=== PATIENT | male | born 1950 | race Caucasian/White ===

== ENCOUNTER 2017-12-30 15:45 | Emergency (ER) | payer MEDICARE, OTHER, SELFPAY ==
[2017-12-30 15:46] VITALS: BP 110/64; PULSE 64; RESP 16; TEMP 36.7; O2SAT 98; BMI 26.6
[2017-12-30] MEDS: 0.9% Normal Saline 1,000 ML 1000 ML IV (16:06)
--- NOTE | 2017-12-30 16:06 | EKG12_ITS ---
Test Reason : SYNCOPE Blood Pressure : / mmHG Vent. Rate : 069 BPM Atrial Rate : 069 BPM P-R Int : 160 ms QRS Dur : 104 ms QT Int : 400 ms P-R-T Axes : 057 026 046 degrees QTc Int : 428 ms Normal sinus rhythm Normal ECG Confirmed by ARELIS HICKEY, NAVJOT ([id number]), art editor RANDI ZIEGLER ([id number]) on 01/02/2018 10:51:22 AM Referred By: OTONIEL Confirmed By:NAVJOT INFANTE MD
--- NOTE | 2017-12-30 16:10 | RAD_ITS ---
STUDY: X-RAY CHEST REASON FOR EXAM: Male, 67 years old. Syncope TECHNIQUE: Single view of the chest was obtained COMPARISON: None. FINDINGS: No lung consolidation, pleural effusion or pneumothorax. Cardiac size is within normal limits. Calcified granuloma in the left perihilar region. Degenerative changes of the thoracic spine. IMPRESSION: No evidence of focal airspace disease Electronically Signed: Jasen Barahona, at 16:54 EDT Tel , Service support , RAD/Chest 1 View (Portable)
--- NOTE | 2017-12-30 16:34 | ED.VISSUMM ---
- ER Visit Summary Date of Service: 12/30/17 Chief Complaint: [Syncope] History of Present Illness: The patient is a 67 M [presents the emergency department after sustaining a syncopal episode prior to arrival in the emergency department. Patient states that he had finished playing a 18-hole round of golf when he went down to the restaurant and ordered a beer and some food. While seated he began feeling sweaty, dizzy, mildly nauseated, and had a syncopal episode lasting about 2 minutes per . Patient was drooling from the mouth slightly at the time. There is no seizure-like activity noted. Patient came to after about 2 minutes or so and did not appear confused. Patient states that he did drink fluids while out on the golf course. He denies any chest pain or shortness of breath. Currently just feels slightly weak. Patient states he had a similar episode about a year ago but did not completely pass out.] Physical Examination: [HEENT-PERRLA, EOMI. Cranial nerves II through XII grossly intact. TMs clear. Mucous membranes moist. No adenopathy. Cardiovascular-regular rate and rhythm without murmur or ectopy Lungs-clear to auscultation, chest wall stable without crepitus or subcu emphysema Abdomen-normoactive bowel sounds, soft, nontender, no rebound or rigidity, no peritoneal signs. Extremities-intact ?4, normal range of motion, normal pulses, atraumatic] Test Results: [EKG obtained on arrival showed a sinus rhythm with a ventricular rate of 69 bpm with no acute ST segment changes.] BC with a ventricular white count of 8.4, hemoglobin 13.9, hematocrit 42, platelets 269. Chemistries unremarkable. BUN was 41 creatinine 1.62. Troponin was less than 0.015. Chest x-ray was normal. Emergency Department Course and Treatment: [Patient was given a liter normal same fluid bolus] Treatment Plan: [Admit for further workup and evaluation of syncope of unknown etiology] Disposition: [Admit] Impression: [Syncope-etiology uncertain] This note was generated with [employer] software. It may contain incorrect words, spelling, and punctuation that were not noted in review of the chart prior to signing ED Disposition - Plan for ED Patient: Chief Complaint: Syncope Referrals: Finesse Huff MD [Primary Care Provider] -
[2017-12-30 17:04] LABS: Anion Gap 6 (5-15); BUN 41 mg/dL (7-18); BUN/Creat Ratio 25.3 RATIO (10-20); Calcium,Total 9.7 mg/dL (8.5-10.1); Chloride 109 mmol/L (98-107); Creatinine, Serum 1.62 mg/dL (0.70-1.30); EST Glomerular Filtration Rate 45 mL/min (>60); Est Glom Filt Rate - Afr Amer 55 mL/min (>60); Estimated Creatinine Clearance 50.01 ml/min; Glucose 114 mg/dL (74-106); Potassium 4.8 mmol/L (3.5-5.1); Sodium Level 141 mmol/L (136-145)
[2017-12-30 17:50] LABS: Absolute Lymphocyte Count 1.36 X10^3/ul (0.83-4.51); Absolute Neutrophil Count 9.3 X10^3/uL (2.0-7.7); Basophil# 0.03 X10^3/uL; Basophil% 0.3 % (0-1); Eosinophil# 0.04 X10^3/uL; Eosinophils% 0.4 % (0-5); Hemoglobin 13.9 g/dl (13.0-16.5); Lymphocyte # 1.36 X10^3/ul (4.0); Mean Corp Hgb Conc 33.1 g/gl (32-36); Mean Corpuscular Hgb 30.3 pg (27.0-32.0); Mean Corpuscular Volume 91.7 fL (80-94); Mean Platelet Vol. 9.1 fl (6.2-12.0); Monocyte# 0.65 X10^3/uL; Monocyte% 5.7 % (0-10); Neutrophil # 9.27 X10^3/uL (2.7-7.7); Neutrophil % 81.6 % (47-70); Platelet Count 269 K/mm3 (150-450); RBC Distribution Width CV 13.4 % (11.6-14.6); RBC Distribution Width SD 44.2 fl (35.1-43.9); Red Blood Count 4.58 M/mm3 (4.6-6.2); White Blood Count 11.4 K/mm3 (4.4-11.0)
[2017-12-30 17:52] LABS: POSITIVE COUNT NO; POSITIVE DIFFERENTIAL NO; POSITIVE MORPHOLOGY NO
[2017-12-30 18:23] VITALS: BP 133/76; PULSE 83; RESP 17; O2SAT 99
--- NOTE | 2017-12-30 18:25 | ED.DCSUM_ITS ---
- ER Visit Summary Date of Service: 12/30/17 Chief Complaint: [Addendum to initial dictation] History of Present Illness: The patient is a 67 M [] Physical Examination: [] Test Results: [] Emergency Department Course and Treatment: [] Treatment Plan: [Patient was seen by hospitalist in the department and the patient is now stating that he does not want to be admitted. Patient will sign out AGAINST MEDICAL ADVICE. Patient understands I do not have a clear etiology for his syncopal episode and concern about possible cardiac dysrhythmia that could lead to sudden cardiac potentially. Patient understands risk of and disability.] Disposition: [Discharged home AGAINST MEDICAL ADVICE] Impression: [Syncope-etiology uncertain Patient left AGAINST MEDICAL ADVICE] This note was generated with [employer] dictation software. It may contain incorrect words, spelling, and punctuation that were not noted in review of the chart prior to signing ED Disposition - Plan for ED Patient: Chief Complaint: Syncope Referrals: Finesse Huff MD [Primary Care Provider] -
--- NOTE | 2017-12-30 18:25 | ED.DEP ---
ED Disposition - Plan for ED Patient: Chief Complaint: Syncope Instructions: ED Fainting Unkn Cause Referrals: Finesse Huff MD [Primary Care Provider] - As soon as possible
[2017-12-30 18:40] VITALS: BP 114/88; PULSE 83; RESP 20
== END 2017-12-30 18:42 | disposition left against medical advice (07) ==
PROVIDERS: Emergency Provider Emergency Medicine; PCP Family Medicine
DX: R55 Syncope and collapse (principal); N28.9 Disorder of kidney and ureter, unspecified; I10 Essential (primary) hypertension; Z79.82 Long term (current) use of aspirin; Z53.21 Procedure and treatment not carried out due to patient leaving prior to being seen by health care provider
CPT/HCPCS: 36415; 71045; 80048; 84484; 85025; 93005; 96360; 96361; 99285; J7030; A4216

== ENCOUNTER → 2018-01-08 13:17 | Outpatient (CLI) | payer MEDICARE, OTHER, SELFPAY ==
[2018-01-08 14:01] LABS: Hematocrit 41.8 % (40-54); Hemoglobin 13.6 g/dl (13.0-16.5); Mean Corp Hgb Conc 32.5 g/gl (32-36); Mean Corpuscular Volume 92.1 fL (80-94); Platelet Count 256 K/mm3 (150-450); RBC Distribution Width CV 13.2 % (11.6-14.6); RBC Distribution Width SD 44.4 fl (35.1-43.9); Red Blood Count 4.54 M/mm3 (4.6-6.2); White Blood Count 5.3 K/mm3 (4.4-11.0)
[2018-01-08 14:02] LABS: Scan Indicated on CBC? Y/N NO
[2018-01-08 14:24] LABS: Anion Gap 6 (5-15); BUN 26 mg/dL (7-18); BUN/Creat Ratio 20.3 RATIO (10-20); Calcium,Total 9.4 mg/dL (8.5-10.1); Chloride 103 mmol/L (98-107); Creatinine, Serum 1.28 mg/dL (0.70-1.30); EST Glomerular Filtration Rate 59 mL/min (>60); Est Glom Filt Rate - Afr Amer 72 mL/min (>60); Glucose 88 mg/dL (74-106); Potassium 4.6 mmol/L (3.5-5.1); Sodium Level 137 mmol/L (136-145)
== END ==
PROVIDERS: Family Provider Family Medicine; PCP Family Medicine; Visit Provider Surgery
DX: Z01.818 Encounter for other preprocedural examination (principal); E78.5 Hyperlipidemia, unspecified
CPT/HCPCS: 36415; 80048; 85027

== ENCOUNTER → 2018-01-10 15:49 | Outpatient (CLI) | payer MEDICARE, OTHER, SELFPAY | PROVIDERS: Family Provider Family Medicine; PCP Family Medicine; Visit Provider Surgery | DX: I65.23 Occlusion and stenosis of bilateral carotid arteries (principal) | CPT/HCPCS: 70498; Q9967 ==

== ENCOUNTER → 2018-01-16 09:20 | Outpatient (CLI) | payer MEDICARE, OTHER, SELFPAY ==
[2018-01-16 10:13] LABS: Anion Gap 6 (5-15); BUN 20 mg/dL (7-18); BUN/Creat Ratio 15.5 RATIO (10-20); Chloride 106 mmol/L (98-107); Creatinine, Serum 1.29 mg/dL (0.70-1.30); EST Glomerular Filtration Rate 59 mL/min (>60); Est Glom Filt Rate - Afr Amer 71 mL/min (>60); Glucose 97 mg/dL (74-106); Potassium 4.1 mmol/L (3.5-5.1); Sodium Level 141 mmol/L (136-145)
== END ==
PROVIDERS: Family Provider Family Medicine; PCP Family Medicine; Visit Provider Family Medicine
DX: N28.9 Disorder of kidney and ureter, unspecified (principal)
CPT/HCPCS: 36415; 80048

== ENCOUNTER 2018-02-06 05:53 | Inpatient (IN) | payer MEDICARE, OTHER, SELFPAY ==
[2018-02-06] VITALS (21 sets, daily range): BP systolic 112–158; BP diastolic 48–97; PULSE 64–87; RESP 16–18; TEMP 36.2–36.9; O2SAT 94–100; BMI 25.3; BMI 26.3
--- NOTE | 2018-02-06 | PLAQ_PTH ---
PATIENT: JENNIFFER RAMSEY LOC: [facility] U#:[id number] AGE/SX: 67/M ROOM: [facility]211 RE02/06/[address]: Dr. Skyler Brizuela MD : 1950 BED: 1 DIS: 02/07/2018 SPEC #: [id number] RECD: 02/06/18 13:13 STATUS: DANO REQ #: [id number] SOFYA: 02/06/18 00:[address]: Skyler Brizuela DEPT: SURGICAL PATHOLOGY RECD BY: Jesus Alberto Lazcano ENTERED: 02/06/18 13:13 SP TYPE: PLAQUE OTHR DR: Dr. Finesse Huff MD Tissues: PLAQUE Procedures: Decalcification bone/plaque Surgery Specimen Level III HEADER OPERATION: Carotid endarterectomy PRE-OP DIAGNOSIS: Stenosis of right internal carotid artery TISSUE SUBMITTED: Plaque MICROSCOPIC DIAGNOSIS Plaque, carotid endarterectomy: Arteriosclerotic tissue with focal calcification (plaque). SJ:hina 02/08/18 GROSS DESCRIPTION Received in fixative is one container labeled with the patient's name and designated plaque. The specimen consists of a previously opened, indurated piece of acevedo-yellow tissue measuring 2 cm in length and 0.7 cm in diameter. The specimen cuts with gritty sensation. The lumen appears almost completely obliterated. The entire specimen is submitted in one cassette after decalcification. / HANSEL:hina 02/06/18 TC:5 CPT: 13048, 05280
[2018-02-06 06:31] LABS: Mean Corp Hgb Conc 34.1 g/gl (32-36); Mean Corpuscular Hgb 31.3 pg (27.0-32.0); Mean Corpuscular Volume 91.5 fL (80-94); Mean Platelet Vol. 8.7 fl (6.2-12.0); Platelet Count 287 K/mm3 (150-450); RBC Distribution Width CV 13.5 % (11.6-14.6); RBC Distribution Width SD 44.7 fl (35.1-43.9); Red Blood Count 4.48 M/mm3 (4.6-6.2); White Blood Count 5.1 K/mm3 (4.4-11.0)
[2018-02-06 06:32] LABS: Scan Indicated on CBC? Y/N NO
[2018-02-06 06:42] LABS: Anion Gap 9 (5-15); BUN 29 mg/dL (7-18); BUN/Creat Ratio 24.4 RATIO (10-20); Calcium,Total 9.5 mg/dL (8.5-10.1); Chloride 104 mmol/L (98-107); Creatinine, Serum 1.19 mg/dL (0.70-1.30); EST Glomerular Filtration Rate 65 mL/min (>60); Est Glom Filt Rate - Afr Amer 78 mL/min (>60); Estimated Creatinine Clearance 68.08 ml/min; Glucose 89 mg/dL (74-106); Potassium 4.5 mmol/L (3.5-5.1); Sodium Level 139 mmol/L (136-145)
--- NOTE | 2018-02-06 08:19 | PCM.OPRPT ---
Problem List (1) Carotid stenosis, right Status: Acute Report of Operation Date of Procedure: 02/06/18 Pre-Operative Diagnosis: Symptomatic critical stenosis of the right internal carotid Post-Operative Diagnosis: Same Surgery/Procedure Performed:: Right radial arterial line placement. Right carotid endarterectomy with bovine patch angioplasty Description of Surgical Findings:: Timeout and informed consent was obtained. At the bedside Abel test was performed demonstrating adequate right ulnar flow. The right wrist was gently extended and prepped with Betadine. Under ultrasound guidance 1% lidocaine was used as a local anesthetic. A total of 1 cc was used. A 20-gauge Angiocath was advanced under ultrasound guidance into the right radial artery. Seldinger wire advancement was utilized. Then this was exchanged out for a 20-gauge aero kit Angiocath. That was secured to the skin with interrupted 3-0 silk. It was connected to pressure tubing and a OpSite dressing and and Daylin dressing applied. He tolerated the procedure well without apparent complication. Good waveform was obtained. He was subsequently taken to the operating room for planned definitive right carotid surgery Second the operating room. He was placed upon the table. He underwent general endotracheal intubation anesthesia. Ancef 2 g given intravenously preoperatively. He was relatively hypotensive and anesthesia required about 20 minutes to stabilize. Then the right neck was sterilely prepped and draped. An oblique incision was made along the anterior border the sternocleidomastoid sharp dissection carried down through the substance tissue. The platysma was incised. The sternocleidomastoid was reflected laterally as sharp dissection carried directly directly down upon the carotid bulb. It was rather low in the neck. Omohyoid had to be partially transected. Hemostasis was obtained throughout with multiple hemoclips and 3-0 Vicryl ligatures. The carotid bulb was identified circumferential control was obtained and then dissection performed cephalad on the internal carotid artery were transmural involvement with cholesterol plaque was noted. A rather low-lying hypoglossal nerve was identified and carefully protected. Crossing facial vein branches had been secured with hemoclips and 3-0 Vicryl ligatures were indicated. Circumferential control was seen in the common carotid and a Oh tie of Dacron tape placed. Circumferential control was obtained of the internal carotid and the Dacron tape and Eliazar tourniquet was applied. The superior thyroid secured with a Oh tie of 3-0 Vicryl. The external carotid was secured with a single loop of vessel loop. I felt that I had adequate exposure. The patient received 9000 units of heparin weight-based. Later in the procedure at 40 minutes and the procedure he received another 1000 units of heparin IV. Peripheral vascular clamps are placed on the common carotid internal carotid external carotid. 11 blade was used to make an arteriotomy. Initially I slipped a #10 USCI style shunt cephalad but then in attempting to place the shunt proximally the shunt withdrew from that cephalad perch. The retrograde flow from the internal carotid was easily controlled. I then went to reinsert the shunt just did not like the way it felt. I therefore based upon cerebral oximetry and excellent backflow felt that I would proceed without a shunt. The intima was sharply transected proximally and the plaque was elevated from the carotid bulb proceeded cephalad unfortunately the intima of the internal carotid was extraordinarily thin and very fragile. I could not get a smooth nice tapering to the degree that I wanted. I was able to get a feathering. I performed inversion enterectomy of the external carotid. I then readdress the internal carotid carefully removing several extra layers so as to not leave any additional abnormal edges. I did however then used several interrupted 7-0 Prolene tacking sutures to assure that the intima was well secured. I then trimmed a 0.8 x 8 cm bovine patch. I performed a patch angioplasty with a running 6-0 Prolene again taking great care to assure that all of the intima was well secured cephalad at the internal carotid. The patch angioplasty was done in a running fashion. Prior to completion the vessel was irrigated and there was excellent backflow from the internal carotid good backflow from the external carotid and excellent antegrade flow. The patch angioplasty was completed flow was initiated from the external carotid common carotid find the internal carotid. A couple repair sutures of 7-0 Prolene to assure hemostasis. I then used a Doppler probe directly upon the vessel and inspected with duplex demonstrating what appeared to be wide patency and normal flow. [employer] Vanessa was present during this for the procedure to help run the machinery. I felt that I had good flow. I obtained further hemostasis in the wound bed with hemoclips and interrupted 6-0 Prolene sutures. Having hemostasis intact and then closed with his with a running 3-0 Vicryl and the skin edges with a running septic or 5-0 Vicryl. We then placed a larger print probe and in a sterile bag as well and Kath performed a limited right carotid duplex imaging exam as far cephalad as she could view. The internal carotid did dive rather deeply. However the patch angioplasty appeared to be very good there was no evidence of any dissection flow was good in antegrade and the vessel appeared to be widely patent and open. This point felt that an appropriate procedure had been achieved. The valery-incisional areas anesthetized with 10 cc of 0.5% Marcaine. Steri-Strips Telfa and tape dressings were applied. Sponge and instrument and needle counts were reported the surgeon to be correct. Blood loss was 200 cc. He was taken to the recovery area in sagittal condition without apparent complication. Specimens plaque. Drains none. Blood loss 200 cc. He was allowed to awaken on the table. He is neurologically responded normally to all 4 extremities voice was clear tongue was midline. Skyler Brizuela M.D., F.A.C.S. Type of Anesthesia:: General Anesthesiologist: Dipak Mcclain
--- NOTE | 2018-02-06 08:26 | DCINST_ITS ---
Discharge Diet: Light diet - advance as tolerated - if you have questions about your diet instructions, please talk to you doctor. Discharge Activity: May Not Drive - for 1 week or while taking narcotic pain medicine. May shower in (days): 3 - You may shower on Sunday Lifting Restrictions: 10 pounds Call your doctor if your incision/area has: Continuous Slow Oozing, Sudden Increased Bleeding, Increased Pain/ Swelling, Increased Redness, Foul Smelling Discharge Call your doctor if you observe: Fever of 101 or Higher Suture Line Care: Avoid Pulling/Pushing, Avoid Pinching/Bending Additional Dressing/Incision Instructions:: Please leave the Steri-Strips in place for 1 week. You may utilize gauze and tape to further protect the incision from rubbing on any clothing as needed. Allergies/Adverse Reactions: Allergies No Known Allergies Allergy (Verified 01/30/18 08:08) Medications to take at Discharge Aspirin 325 mg PO DAILY@0800 01/30/18 Hydrocodone Bitart/Apap 5-325 [Patrick 5MG-325MG] 1 tablet PO Q6H PRN PRN 2 Days # 8 tablet 02/06/18 The following prescriptions were given: Hydrocodone Bitart/Apap 5-325 [Patrick 5MG-325MG] 1 tablet PO Q6H PRN PRN 2 Days # 8 tablet PRN Reason: Pain Primary Care Physician: Finesse Huff MD [Primary Care Provider] - Test Results: Test results from this visit will be discussed in further detail at your follow- up appointment, if applicable. Please Follow Up With: Skyler Brizuela MD - [phone] When: Call to make an appointment to be seen in about 10 days.
[2018-02-06] MEDS: Cefazolin 2 GM in 0.9% Normal Saline 100 ML IV (08:47)
[2018-02-06] MEDS: Bupivacaine Mpf 0.5% 30 ML VIAL (11:13)
[2018-02-06] MEDS: Heparin Injection (Vial) 5,000 UNIT/ML VIAL 5000 UNIT (11:14)
[2018-02-06] MEDS: Lactated Ringers 1,000 ML 15 ML IV (16:45)
[2018-02-06] MEDS: Acetaminophen 325 MG Tablet PO ×2 (16:45→22:56)
[2018-02-06] MEDS: Cefazolin 1 GM/50 ML BAG IV (16:46)
--- NOTE | 2018-02-06 18:28 | PCM.CAROT ---
General Carotid Note - Subjective Post-Op Day #: 0 - Objective Vital Signs Temp Pulse Resp BP Pulse Ox 97.8 F 72 16 115/63 99 02/06/18 16:50 02/06/18 16:50 02/06/18 16:50 02/06/18 16:50 02/06/18 16:50 Laboratory Tests Past 24 Hrs 02/06/18 02/06/18 06:20 06:20 WBC 5.1 RBC 4.48 L Hgb 14.0 Hct 41.0 MCV 91.5 MCH 31.3 MCHC 34.1 RDW 13.5 RDW Differential 44.7 H Plt Count 287 MPV 8.7 Sodium 139 Potassium 4.5 Chloride 104 Carbon Dioxide 26.0 Anion Gap 9 BUN 29 H Creatinine 1.19 Estim Creat Clear Calc 68.08 Est GFR (MDRD) Af Amer 78 Est GFR (MDRD) Non-Af 65 BUN/Creatinine Ratio 24.4 H Glucose 89 Calcium 9.5 Neck: Supple Neurological: Cranial nerves II-XII grossly intact - Pt has voided and is quite comfortable. No complaints
[2018-02-07] MEDS: Cefazolin 1 GM/50 ML BAG IV (01:20)
[2018-02-07 02:18] VITALS: BP 135/66; PULSE 82; RESP 16; TEMP 36.4; O2SAT 98
[2018-02-07] MEDS: Acetaminophen 325 MG Tablet PO (05:04)
--- NOTE | 2018-02-07 06:11 | PCM.CAROT ---
General Carotid Note - Subjective Post-Op Day #: 1 - Objective Vital Signs Temp Pulse Resp BP Pulse Ox 97.6 F L 82 16 135/66 H 98 02/07/18 02:18 02/07/18 02:18 02/07/18 02:18 02/07/18 02:18 02/07/18 02:18 Laboratory Tests Past 24 Hrs 02/06/18 02/06/18 06:20 06:20 WBC 5.1 RBC 4.48 L Hgb 14.0 Hct 41.0 MCV 91.5 MCH 31.3 MCHC 34.1 RDW 13.5 RDW Differential 44.7 H Plt Count 287 MPV 8.7 Sodium 139 Potassium 4.5 Chloride 104 Carbon Dioxide 26.0 Anion Gap 9 BUN 29 H Creatinine 1.19 Estim Creat Clear Calc 68.08 Est GFR (MDRD) Af Amer 78 Est GFR (MDRD) Non-Af 65 BUN/Creatinine Ratio 24.4 H Glucose 89 Calcium 9.5 Neck: Supple Neurological: Cranial nerves II-XII grossly intact - Excellent progress. Neuro intact. Wound clean. Plan discharge
[2018-02-07 08:15] VITALS: BP 143/72; PULSE 69; RESP 16; TEMP 36.4; O2SAT 100
== END 2018-02-07 09:50 | disposition home or self-care (01) | DRG 39 ==
PROVIDERS: Admitting Provider Surgery; Family Provider Family Medicine; PCP Family Medicine; Visit Provider Surgery
PROC: 03CK0ZZ Extirpation of Matter from Right Internal Carotid Artery, Open Approach (ICD-10-PCS; CPT 35301; principal; 2018-02-06 08:10)
DX: I65.21 Occlusion and stenosis of right carotid artery (principal); F17.200 Nicotine dependence, unspecified, uncomplicated
CPT/HCPCS: 36415; 80048; 85027; 88304; 88311; J7040; J7120; J2405

== ENCOUNTER 2018-07-04 05:29 | Day surgery (SDC) | payer MEDICARE, OTHER, SELFPAY ==
[2018-07-04] VITALS (8 sets, daily range): BP systolic 75–132; BP diastolic 51–113; PULSE 70–95; RESP 16–18; TEMP 35.9–36.5; O2SAT 92–100
--- NOTE | 2018-07-04 06:30 | PCM.HP.STD ---
Problem List (1) Personal history of colonic polyps Status: Acute History of Present Illness Date of Admission: 07/04/18 The patient is a 68 year old M who has a personal history of colon polyps. He has a sister who had colorectal cancer. His previous colonoscopies 3 years ago. He denies bright red blood per rectum or melena. I have assisted him in the recent past with a left carotid endarterectomy. He remains asymptomatic. He otherwise enjoys good health Past Medical History Past Medical History (Chronic Problems): Chronic Problems (Last Reviewed 02/15/18 @ 13:53 by Sue Choudhary) Hypertension (Chronic) Medical History: Medical History (Last Reviewed 02/15/18 @ 13:53 by Sue Choudhary) Carotid stenosis, right (Acute) I65.21 Hyperlipemia (Acute) E78.5 Hypertension (Chronic) I10 Diverticular disease of colon (Acute) K57.30 Benign neoplasm of colon (Acute) D12.6 Allergies No Known Allergies Allergy (Verified 07/01/18 08:47) Home Medications: Ambulatory Orders Medication Instructions Recorded Atorvastatin Calcium [Lipitor] 10 mg PO QHS 07/01/18 Lisinopril [Zestril] 10 mg PO DAILY 07/01/18 Multivitamin [Multiple Vitamins] 1 each PO DAILY 07/01/18 Aspirin [Aspirin, Baby] 81 mg PO DAILY@0800 07/04/18 Surgical History: Surgical History (Last Updated 02/15/18 @ 13:53 by Sue Choudhary) Hx of basal cell carcinoma excision (Acute) Z98.890, Z85.828 nose 2016 History of esophagogastroduodenoscopy (EGD) (Acute) Z98.890 08/07/2005 Hx of colonoscopy (Acute) Z98.890 07/01/07, 07/25/2010, 06/2001, 07/2002,06/2004, 2009,06/25/2015 Hx of appendectomy (Acute) Z90.49 History of right-sided carotid endarterectomy Onset Date: ~02/06/18 Z98.890 Smoking Status: Former smoker Tobacco Use: Non-smoker Review of Systems Constitutional: Denies: Anorexia Eyes: Denies: Blurred vision HEENT: Denies: Difficulty Hearing Cardiovascular: Denies: Chest Pain Respiratory: Denies: Cough Gastrointestinal: Denies: Abdominal Pain Neurological: Denies: Balance problems Endocrine: Denies: Change in Body Habitus VTE Information - Inpt Only VTE Present on Admission: No Patient Problems: Active and Suspected Problems (Last Reviewed 02/15/18 @ 13:53 by Sue Choudhary) Personal history of colonic polyps (Acute) - Physical Exam General: Alert, Oriented x3, Cooperative, No apparent distress HEENT: Atraumatic Oral: Moist Mucosa Neck: Supple, No JVD Lungs: Clear to auscultation Cardiovascular: Regular rate, Regular Rhythm Abdomen: Bowel Sounds Present, Soft, Non Tender Extremities: No Calf Tenderness Psych/Mental Status: Normal Affect Vital Signs Temp Pulse Resp BP Pulse Ox 97.7 F L 95 16 111/59 L 97 07/04/18 05:53 07/04/18 05:53 07/04/18 05:53 07/04/18 05:53 07/04/18 05:53 Oxygen Delivery Method Room Air Weight: 188 lb 4.396 oz Assessment/Plan All Active Problems (Last Reviewed 02/15/18 @ 13:53 by Sue Choudhary) Personal history of colonic polyps (Acute) Carotid stenosis, right (Acute) Hx of basal cell carcinoma excision (Acute) History of esophagogastroduodenoscopy (EGD) (Acute) Hx of colonoscopy (Acute) Hx of appendectomy (Acute) Hyperlipemia (Acute) Diverticular disease of colon (Acute) Benign neoplasm of colon (Acute) I am recommending the patient a colonoscopy with possible biopsy or polypectomy as indicated. He is aware of the technique, benefits, risks, alternatives. He has had an opportunity to ask and have questions answered. He presents via our our open access program. We will proceed as noted. Skyler Brizuela M.D., F.A.C.S.
--- NOTE | 2018-07-04 06:56 | OP.ENDO_ITS ---
Patient Name: Javad Padilla Procedure Date: 07/04/2018 6:11 AM Date of : 1950 Age: 68 Procedure: Colonoscopy Indications: High risk colon cancer surveillance: Personal history of colonic polyps, Family history of colon cancer in a first-degree relative Providers: Skyler Brizuela MD Referring MD: Skyler Brizuela MD Medicines: Midazolam 3.5 mg IV, Meperidine 100 mg IV Patient Profile: Last Colonoscopy: 3 years ago. Complications: No immediate complications. Procedure: Pre-Anesthesia Assessment: - Prior to the procedure, a History and Physical was performed, and patient medications and allergies were reviewed. The patient's tolerance of previous anesthesia was also reviewed. The risks and benefits of the procedure and the sedation options and risks were discussed with the patient. All questions were answered, and informed consent was obtained. Prior Anticoagulants: The patient has taken aspirin, last dose was day of procedure. ASA Grade Assessment: II - A patient with mild systemic disease. After reviewing the risks and benefits, the patient was deemed in satisfactory condition to undergo the procedure. After I obtained informed consent, the scope was passed under direct vision. Throughout the procedure, the patient's blood pressure, pulse, and oxygen saturations were monitored continuously. The colonoscope was introduced through the anus and advanced to the cecum, identified by appendiceal orifice and ileocecal valve. The colonoscopy was performed without difficulty. The patient tolerated the procedure well. The quality of the bowel preparation was good. The ileocecal valve and the appendiceal orifice were photographed. Moderate Sedation: Moderate (conscious) sedation was personally administered by the endoscopist. The following parameters were monitored: oxygen saturation, heart rate, blood pressure, and response to care. Total physician intraservice time was 15 minutes. Scope In: 6:37:58 AM Scope Withdrawal Time 0 hours 8 minutes 51 seconds Scope Out: 6:52:09 AM Total Procedure Duration Time 0 hours 14 minutes 11 seconds Findings: The perianal and digital rectal examinations were normal. Pertinent negatives include normal prostate (size, shape, and consistency). Multiple diverticula were found in the entire colon. The exam was otherwise without abnormality. Impression: - Diverticulosis in the entire examined colon. - The examination was otherwise normal. - No specimens collected. Recommendation: - Discharge patient to home. - Resume previous diet. - Continue present medications. - Repeat colonoscopy in 5 years for surveillance. Procedure Code(s): --- Professional --- 12101, Colonoscopy, flexible; diagnostic, including collection of specimen(s) by brushing or washing, when performed (separate procedure) 20668, 59, Moderate sedation services provided by the same physician or other qualified health family day care provider performing the diagnostic or therapeutic service that the sedation supports, requiring the presence of an independent trained observer to assist in the monitoring of the patient's level of consciousness and physiological status; initial 15 minutes of intraservice time, patient age 5 years or older Diagnosis Code(s): --- Professional --- Z86.010, Personal history of colonic polyps Z80.0, Family history of malignant neoplasm of digestive organs K57.30, Diverticulosis of large intestine without perforation or abscess without bleeding CPT copyright 2017 [employer]. All rights reserved. The codes documented in this report are preliminary and upon ore trimmer review may be revised to meet current compliance requirements. Skyler Brizuela MD 07/04/2018 6:56:16 AM This report has been signed electronically. Number of Addenda: 0 Note Initiated On: 07/04/2018 6:11 AM
== END 2018-07-04 08:15 | disposition home or self-care (01) ==
LOC: EN 05:30 → AC 05:33
PROVIDERS: Family Provider Family Medicine; PCP Family Medicine; Referring Provider Surgery; Visit Provider Surgery
PROC: 0DJD8ZZ Inspection of Lower Intestinal Tract, Via Natural or Artificial Opening Endoscopic (ICD-10-PCS; CPT 45378; principal; 2018-07-04 06:25)
DX: K57.30 Diverticulosis of large intestine without perforation or abscess without bleeding (principal); Z86.010 Personal history of colon polyps; Z80.0 Family history of malignant neoplasm of digestive organs; I65.21 Occlusion and stenosis of right carotid artery; I10 Essential (primary) hypertension; E78.5 Hyperlipidemia, unspecified; Z79.82 Long term (current) use of aspirin; Z79.899 Other long term (current) drug therapy; Z87.891 Personal history of nicotine dependence
CPT/HCPCS: G0105; 99152; 99153; J7120

== ENCOUNTER → 2021-08-30 | Outpatient (CLI) | payer MEDICARE, OTHER, SELFPAY ==
--- NOTE | 2021-08-30 | LES_PTH ---
PATIENT: JENNIFFER RAMSEY [facility] U#:[id number] AGE/SX: 71/M ROOM: RE08/30/[address]: Dr. Skyler Brizuela MD : 1950 BED: DIS: 08/30/2021 SPEC #: [id number] RECD: 08/31/21 07:35 STATUS: DANO RERuben #: [id number] SOFYA: 08/30/21 00:[address]: Skyler Brizuela DEPT: SURGICAL PATHOLOGY RECD BY: Giovanna Pop ENTERED: 08/31/21 13:10 SP TYPE: Lesion OTHR DR: Dr. Finesse Huff MD Tissues: Skin of face, NOS Procedures: Surgery Specimen Level IV HEADER OPERATION: Shave biopsy, right cheek lesion PRE-OP DIAGNOSIS: Neoplasm face TISSUE SUBMITTED: Right cheek tissue MICROSCOPIC DIAGNOSIS Right cheek tissue, biopsy: Seborrheic keratosis (fragmented). SJ:hina 09/01/2021 MICROSCOPIC DESCRIPTION Slides are reviewed. GROSS DESCRIPTION Received in fixative is one container labeled with the patient's name and designated right cheek. The specimen consists of multiple irregular fragments of acevedo-brown soft tissue that in aggregate measure 0.5 x 0.3 x 0.1 cm. The specimen is totally submitted in one cassette. / HANSEL:hina 08/31/2021 TC:1 CPT: 41428
== END | disposition home or self-care (01) ==
LOC: LABSPEC 08-31 13:15
PROVIDERS: PCP Family Medicine; Visit Provider Surgery
DX: L82.1 Other seborrheic keratosis (principal)
CPT/HCPCS: 88305

== ENCOUNTER 2023-10-23 07:46 | Day surgery (SDC) | payer MEDICARE, OTHER, SELFPAY ==
[2023-10-23 08:07] VITALS: BP 114/75; PULSE 75; RESP 16; TEMP 36.4; O2SAT 100; BMI 24.5
[2023-10-23] MEDS: Lactated Ringers 1,000 ML 15 ML IV (08:10)
--- NOTE | 2023-10-23 08:36 | PCM.HP.STD ---
HPI - General General Date of Service: 10/23/23 HPI Narrative JENNIFFER RAMSEY, is a 73 M who presents today via open access. He has a personal history of colon polyps and a family history of a sister had colon cancer. Previous colonoscopy was June 2018. He has been feeling well. No particular complaints. [facility] Medical History (Updated 10/23/23 @ 08:[address] Skyler Brizuela MD) Loss of hearing Wears glasses Osteoarthritis High cholesterol Syncope Former smoker Leg cramps Family hx of colon cancer Carotid stenosis, right Hyperlipemia Hypertension Diverticular disease of colon Benign neoplasm of colon Home Medications ?Medication ?Instructions ?Recorded ?Last Taken ?Type metoprolol succinate 25 mg 25 mg PO DAILY 08/27/23 10/22/23 22:00 History tablet,extended release 24 hr pravastatin 20 mg tablet 20 mg PO DAILY 08/27/23 Unknown History tadalafil 20 mg tablet 20 mg PO DAILY PRN sexual activity 08/27/23 Unknown History multivitamin (Daily Multi-Vitamin 1 tab PO DAILY 10/17/23 Unknown History tablet) Allergy/AdvReac Type Severity Reaction Status Date / Time venom-honey bee Allergy Swelling Verified 10/23/23 08:00 venom-wasp Allergy Swelling Verified 10/23/23 08:00 Family History Sister Colon cancer Mother Hypertension Heart disease Father Pancreatic cancer Lung cancer Surgical History History of laminectomy (~12/2020) History of cervical spinal surgery (~12/2020) History of right-sided carotid endarterectomy (~02/06/18) Hx of basal cell carcinoma excision History of esophagogastroduodenoscopy (EGD) Hx of colonoscopy Hx of appendectomy Social History Smoking Status: Former smoker alcohol intake: current alcohol intake frequency: a few times a month substance use type: does not use caffeine: Yes what type of physical activity do you participate in: other details: 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 frequency: does not exercise seatbelt use: always ROS Constitutional Constitutional: Reports systems reviewed and no addt'l complaints, except as documented Cardiovascular Cardiovascular: Denies chest pain Respiratory/Chest Respiratory/Chest: Denies shortness of breath at rest Gastrointestinal Gastrointestinal: Denies abdominal pain, change in bowel habits, hematochezia or melena Vital Signs Vital Signs Vital Signs: 10/23/23 08:07 10/23/23 08:07 Temperature 97.5 F L Temperature Source Temporal Pulse Rate 75 Respiratory Rate 16 Respiratory Pattern Normal Blood Pressure 114/75 Blood Pressure Mean 88 Blood Pressure Source Monitor Blood Pressure Position Semi-Fowlers Blood Pressure Location Right Arm Pulse Ox 100 Oxygen Delivery Method Room Air Weight Weight: 181 lb Body Mass Index (BMI) 24.5 Physical Exam Const alert, oriented x3 and no apparent distress General Appearance: cooperative and comfortable Eyes General Eye: normal appearance of both eyes Neck General: normal visual inspection Chest inspection of chest normal Resp Effort and Inspection: able to speak in complete sentences and symmetric chest movement Auscultation: clear to auscultation bilaterally Cardio regular rate and regular rhythm GI soft to palpation, non-tender and non-distended Extremity no calf tenderness Neuro oriented x3 Psych thought process normal Assessment & Plan Assessment/Plan (1) Personal history of colonic polyps: (2) Family hx of colon cancer: PLAN: The patient presents via open access today for surveillance colonoscopy as his sister who had colon cancer and he personally has had colon polyps. He is aware of the technique, benefit, risk, alternatives. He had an opportunity to ask and have questions answered. We will proceed as noted. Skyler Brizuela M.D., F.A.C.S.
--- NOTE | 2023-10-23 08:45 | COLBX_PTH ---
PATIENT: JENNIFFER RAMSEY LOC: EN U#:[id number] AGE/SX: 73/M ROOM: RE10/23/[address]: Dr. Skyler Brizuela MD : 1950 BED: DIS: 10/23/2023 SPEC #: [id number] RECD: 10/23/23 12:46 STATUS: DANO DARDEN #: [id number] SOFYA: 10/23/23 08:[address]: Skyler Brizuela DEPT: SURGICAL PATHOLOGY RECD BY: Giovanna Pop ENTERED: 10/23/23 13:29 SP TYPE: COLON BX OTHR DR: Dr. Finesse Huff MD Tissues: Rectum, NOS Procedures: Surgery Specimen Level IV HEADER OPERATION: Colonoscopy with biopsy PRE-OP DIAGNOSIS: Personal history of colonic polyps, family history of colon cancer TISSUE SUBMITTED: Rectal polyp biopsy MICROSCOPIC DIAGNOSIS Rectal polyp, biopsy Hyperplastic polyp. AM/mr 10/24/2023 MICROSCOPIC DESCRIPTION Slides are reviewed. GROSS DESCRIPTION Received in fixative is one container labeled with the patient's name and designated Rectal polyp biopsy. The specimen consists of two irregular fragments of light acevedo soft tissue that in aggregate measure 0.3 x 0.3 x 0.1 cm. The specimen is totally submitted in one cassette. AM/mr 10/23/2023 TC:5 CPT:73157
[2023-10-23 09:45] VITALS: BP 114/75; BP 92/58; PULSE 57; RESP 16; TEMP 36.1; O2SAT 100
--- NOTE | 2023-10-23 09:45 | OP.COLON_ITS ---
Patient Name: Javad Padilla Procedure Date: 10/23/2023 9:18 AM Date of : 1950 Age: 73 Procedure: Colonoscopy Indications: High risk colon cancer surveillance: Personal history of colonic polyps, Family history of colon cancer in a first-degree relative before age 60 years Providers: Skyler Brizuela MD Referring MD: Finesse Huff MD Medicines: See the Anesthesia note for documentation of the administered medications Patient Profile: Last Colonoscopy: June 2018. Complications: No immediate complications. Procedure: Pre-Anesthesia Assessment: - Prior to the procedure, a History and Physical was performed, and patient medications and allergies were reviewed. The patient's tolerance of previous anesthesia was also reviewed. The risks and benefits of the procedure and the sedation options and risks were discussed with the patient. All questions were answered, and informed consent was obtained. Prior Anticoagulants: The patient has taken no anticoagulant or antiplatelet agents. ASA Grade Assessment: II - A patient with mild systemic disease. After reviewing the risks and benefits, the patient was deemed in satisfactory condition to undergo the procedure. After I obtained informed consent, the scope was passed under direct vision. Throughout the procedure, the patient's blood pressure, pulse, and oxygen saturations were monitored continuously. The adult colonoscope was introduced through the anus and advanced to the cecum, identified by appendiceal orifice and ileocecal valve. The colonoscopy was performed without difficulty. The patient tolerated the procedure well. The quality of the bowel preparation was good. The ileocecal valve and the appendiceal orifice were photographed. Scope In: 9:25:09 AM Scope Withdrawal Time 0 hours 8 minutes 3 seconds Scope Out: 9:39:37 AM Total Procedure Duration Time 0 hours 14 minutes 28 seconds Findings: The digital rectal exam findings include non-thrombosed internal hemorrhoids, internal hemorrhoids that prolapse with straining, but spontaneously regress to the resting position (Grade II) and enlarged prostate. A 3 mm polyp was found in the rectum. The polyp was sessile. The polyp was removed with a cold biopsy forceps. Resection and retrieval were complete. Multiple diverticula were found in the sigmoid colon and descending colon. Impression: - Non-thrombosed internal hemorrhoids, internal hemorrhoids that prolapse with straining, but spontaneously regress to the resting position (Grade II) and enlarged prostate found on digital rectal exam. - One 3 mm polyp in the rectum, removed with a cold biopsy forceps. Resected and retrieved. - Diverticulosis in the sigmoid colon and in the descending colon. Recommendation: - Discharge patient to home. - Resume previous diet. - Continue present medications. - Repeat colonoscopy in 5 years for surveillance based on pathology results. - Telephone my office for pathology results in 1 week. Procedure Code(s): --- Professional --- 44432, Colonoscopy, flexible; with biopsy, single or multiple Diagnosis Code(s): --- Professional --- Z86.010, Personal history of colonic polyps D12.8, Benign neoplasm of rectum K64.1, Second degree hemorrhoids Z80.0, Family history of malignant neoplasm of digestive organs N40.0, Benign prostatic hyperplasia without lower urinary tract symptoms K57.30, Diverticulosis of large intestine without perforation or abscess without bleeding CPT copyright 2021 [employer]. All rights reserved. The codes documented in this report are preliminary and upon sheather review may be revised to meet current compliance requirements. Skyler Brizuela MD 10/23/2023 9:44:39 AM This report has been signed electronically. Number of Addenda: 0 Note Initiated On: 10/23/2023 9:18 AM
--- NOTE | 2023-10-23 09:45 | OP.CCLET_ITS ---
10/23/2023 Finesse Huff MD Re : Colonoscopy procedure for Javad Padilla Dear Dr. Huff This procedure was performed on Monday, October 23, 2023. My impressions and recommendations are as follows: Impressions : - Non-thrombosed internal hemorrhoids, internal hemorrhoids that prolapse with straining, but spontaneously regress to the resting position (Grade II) and enlarged prostate found on digital rectal exam. - One 3 mm polyp in the rectum, removed with a cold biopsy forceps. Resected and retrieved. - Diverticulosis in the sigmoid colon and in the descending colon. Recommendations : - Discharge patient to home. - Resume previous diet. - Continue present medications. - Repeat colonoscopy in 5 years for surveillance based on pathology results. - Telephone my office for pathology results in 1 week. My findings are described in the full procedure note, which is enclosed. If I can be of further assistance, please feel free to contact me at Doctor phone number(s): Work: . Sincerely, Skyler Brizuela MD 10/23/2023 9:44:39 AM This report has been signed electronically.
[2023-10-23 09:50] VITALS: BP 114/75; BP 90/61; PULSE 57; RESP 16; O2SAT 98
[2023-10-23 09:55] VITALS: BP 106/61; BP 114/75; PULSE 53; RESP 16; O2SAT 97
[2023-10-23 10:00] VITALS: BP 114/75; BP 92/42; PULSE 58; RESP 16; TEMP 35.8; O2SAT 100
[2023-10-23 10:30] VITALS: BP 114/75
== END 2023-10-23 10:36 | disposition home or self-care (01) ==
LOC: EN 07:47 → AC 07:48
PROVIDERS: PCP Family Medicine; Referring Provider Family Medicine; Visit Provider Surgery
PROC: 0DJD8ZZ Inspection of Lower Intestinal Tract, Via Natural or Artificial Opening Endoscopic (ICD-10-PCS; CPT 45378; principal; 2023-10-23 08:40)
DX: Z12.11 Encounter for screening for malignant neoplasm of colon (principal); Z86.010 Personal history of colon polyps; I10 Essential (primary) hypertension; K62.1 Rectal polyp; K57.30 Diverticulosis of large intestine without perforation or abscess without bleeding; Z87.891 Personal history of nicotine dependence; N40.0 Benign prostatic hyperplasia without lower urinary tract symptoms; Z80.0 Family history of malignant neoplasm of digestive organs; E78.00 Pure hypercholesterolemia, unspecified; K64.1 Second degree hemorrhoids; Z79.899 Other long term (current) drug therapy
CPT/HCPCS: 45380; 88305; J7120; J2405